=== PATIENT | female | born 1945 | race Caucasian/White ===

== ENCOUNTER 2017-12-26 13:39 | Emergency (ER) | payer OTHER ==
[~2017-12-26] VITALS: Ht 157.5 cm; Wt 96.7 kg
[2017-12-26 14:41] LABS: HEMATOCRIT 41.4 % (36.0-46.0); HEMOGLOBIN 12.7 G/DL (11.9-15.5); MCH 24.2 PG (29.0-34.0); MCHC 30.7 G/DL (30.0-36.0); MCV 78.9 FL (83-99); PLATELET COUNT 51 K/uL (156-360); RBC DIS.WIDTH-CV 17.5 % (11.8-14.6); RBC DIS.WIDTH-SD 49.8 % (39-53); RED BLOOD COUNT 5.25 M/uL (3.80-5.20); WHITE BLOOD COUNT 16.3 K/uL (4.1-10.2)
[2017-12-26 14:51] LABS: CHLORIDE 105 mEq/L (99-109); POTASSIUM 3.9 mEq/L (3.7-5.4); SODIUM 138 mEq/L (136-147)
[2017-12-26 14:53] LABS: GLUCOSE 148 mg/dL (70-99)
[2017-12-26 14:57] LABS: CREATININE 0.9 mg/dL (0.6-1.3); GFR ESTIMATE (CALCULATED) > 59 mL/min/
[2017-12-26 14:58] LABS: UREA NITROGEN (BUN) 14 mg/dL (9-23)
[2017-12-26] MEDS ORDERED: LISINOPRIL30 MG PO (15:48)
[2017-12-26 16:25] VITALS: BP 181/100
== END 2017-12-26 16:26 | disposition home or self-care (01) ==
LOC: EME 13:39
PROVIDERS: Emergency Medicine
DX: R04.0 Epistaxis (principal); I10 Essential (primary) hypertension; D69.6 Thrombocytopenia, unspecified
CPT/HCPCS: 80048; 85027; 93005; 99281; 99284